=== PATIENT | male | born 1990 | race Caucasian/White ===

== ENCOUNTER 2018-08-27 13:16 | Emergency (ER) | payer OTHER ==
[~2018-08-27] VITALS: Ht 182.9 cm; Wt 90.7 kg
[2018-08-27] MEDS ORDERED: ULTRAM 50MG TAB50 MG PO (13:42)
[2018-08-27] MEDS ORDERED: ERYTHROMYCIN E3.5 G2 OPHTHALMIC (13:42)
[2018-08-27 13:45] VITALS: BP 142/92
== END 2018-08-27 13:46 | disposition home or self-care (01) ==
LOC: M.ERS 13:16
DX: T15.91XA Foreign body on external eye, part unspecified, right eye, initial encounter (principal); Z88.8 Allergy status to other drugs, medicaments and biological substances; X58.XXXA Exposure to other specified factors, initial encounter; Y93.89 Activity, other specified; Y92.89 Other specified places as the place of occurrence of the external cause; Y99.8 Other external cause status